=== PATIENT | male | born 1950 | race Caucasian/White ===

== ENCOUNTER 2024-09-14 07:44 | Day surgery (SDC) | payer OTHER ==
[2024-09-09 12:15] VITALS: BMI 23.0
[2024-09-14] MEDS ORDERED: PROPOFOL 20 ML ONE (08:34)
[2024-09-14] MEDS ORDERED: POVIDONE-IODINE 5% OPHTHALMIC PREP 30 ML SOLUTION ONE (08:55)
[2024-09-14] MEDS ORDERED: ceFAZolin SODIUM 1 GM VIAL ONE (08:55)
[2024-09-14] MEDS ORDERED: TETRACAINE 0.5% OPHTH SOLN 2 ML BOTTLE ONE (08:55)
[2024-09-14] MEDS ORDERED: ERYTHROMYCIN 0.5% OPHTHALMIC OINTMENT 3.5 GM TUBE ONE (08:55)
[2024-09-14] MEDS ORDERED: BUPIVACAINE HCL/PF 0.5% (5MG/ML) 10 ML VIAL ONE (08:55)
[2024-09-14] MEDS ORDERED: LIDOCAINE 1%/EPI 1:100000 (20 ML MULTI DOSE VIAL) ONE (08:56)
[2024-09-14] MEDS ORDERED: MIDAZOLAM HCL 2 MG/2 ML SINGLE DOSE VIAL ONE (09:11)
[2024-09-14] MEDS ORDERED: oxyCODONE HCL 5 MG TABLET PO PRN (09:19)
[2024-09-14] MEDS ORDERED: ONDANSETRON 4 MG/2 ML VIAL IVPUSH PRN (09:19)
[2024-09-14] MEDS ORDERED: LACTATED RINGERS SOLUTION 1,000 ML IV SCH (09:30)
[2024-09-14] MEDS ORDERED: KETOROLAC TROMETHAMINE 30 MG/1 ML VIAL ONE (11:46)
[2024-09-14 13:19] VITALS: RESP 16; TEMP 97.1
[2024-09-14 13:55] VITALS: BP 110/68; PULSE 70
== END 2024-09-14 14:01 | disposition home or self-care (01) ==
LOC: FASU 07:44
PROVIDERS: ATTEND Ophthalmology
PROC: 08SN0ZZ Reposition Right Upper Eyelid, Open Approach (ICD-10-PCS; 2024-09-14)
PROC: 0HX1XZZ Transfer Face Skin, External Approach (ICD-10-PCS; 2024-09-14)
PROC: 08SQ0ZZ Reposition Right Lower Eyelid, Open Approach (ICD-10-PCS; principal; 2024-09-14 09:54)
DX: C44.1122 Basal cell carcinoma of skin of right lower eyelid, including canthus (principal); C44.1121 Basal cell carcinoma of skin of right upper eyelid, including canthus
CPT/HCPCS: 70200-TC-FY; 82962; 94760